=== PATIENT | male | born 1960 | race Caucasian/White ===

== ENCOUNTER 2020-03-28 11:56 | Emergency (ER) | payer MEDICARE ==
[~2020-03-28] VITALS: Ht 175.3 cm; Wt 72.7 kg
[2020-03-28 14:28] VITALS: BP 147/84
== END 2020-03-28 14:31 | disposition home or self-care (01) ==
LOC: EMS 12:00
DX: S63.92XA Sprain of unspecified part of left wrist and hand, initial encounter (principal); V92.09XA Drowning and submersion due to fall off unspecified watercraft, initial encounter; Y93.89 Activity, other specified; Y92.89 Other specified places as the place of occurrence of the external cause; Y99.8 Other external cause status